=== PATIENT | female | born 1950 | race Caucasian/White ===

== ENCOUNTER → 2021-03-31 | Outpatient (CLI) | payer OTHER, MEDICARE ==
[~2021-03-31] MED LIST: ADDERALL 10 MG10 MG PO; ALPRAZOLAM XR3 MG PO; AMITIZA8 MCG PO; BYSTOLIC10 MG PO; FLONASE 0.05%50 MCG NARES; IPRAT-ALBUT 0.5-3 ML INH; LEVO-T25 MCG PO; NICOTINE1 EAC2 TRANSDERM; NORCO 10-325 T1 EACH PO; PAXIL20 MG PO; QUETIAPINE FUM300 MG PO; ZOCOR 20 MG TAB20 M1 PO
== END ==
LOC: SJCVC 12:32 → SJCVCIMAG 12:32
PROVIDERS: ATTEND Internal Medicine Cardiovascular Disease
DX: I65.23 Occlusion and stenosis of bilateral carotid arteries (principal); I34.0 Nonrheumatic mitral (valve) insufficiency; I49.3 Ventricular premature depolarization; C80.1 Malignant (primary) neoplasm, unspecified; R07.9 Chest pain, unspecified; E78.00 Pure hypercholesterolemia, unspecified; G89.29 Other chronic pain; R94.39 Abnormal result of other cardiovascular function study; R09.89 Other specified symptoms and signs involving the circulatory and respiratory systems; R53.83 Other fatigue; F90.9 Attention-deficit hyperactivity disorder, unspecified type; J44.9 Chronic obstructive pulmonary disease, unspecified; G56.01 Carpal tunnel syndrome, right upper limb; E03.9 Hypothyroidism, unspecified; F43.10 Post-traumatic stress disorder, unspecified; I12.9 Hypertensive chronic kidney disease with stage 1 through stage 4 chronic kidney disease, or unspecified chronic kidney disease; N18.30 Chronic kidney disease, stage 3 unspecified; M47.816 Spondylosis without myelopathy or radiculopathy, lumbar region; F17.200 Nicotine dependence, unspecified, uncomplicated; Z72.89 Other problems related to lifestyle; Z86.711 Personal history of pulmonary embolism; Z79.899 Other long term (current) drug therapy; Z88.2 Allergy status to sulfonamides; Z88.5 Allergy status to narcotic agent

== ENCOUNTER → 2021-04-03 | Outpatient (CLI) | payer OTHER, MEDICARE ==
[~2021-04-03] VITALS: Ht 172.7 cm; Wt 56.7 kg
[2021-04-03 08:34] LABS: HEMATOCRIT 37.3 % (37.0-47.0); HEMOGLOBIN 12.3 gm/dL (12.0-15.0); MCH 31.2 pg (26.0-34.0); MCV 94.8 fL (80.0-100.0); RBC 3.94 mil/uL (4.20-5.00); RDW 13.4 % (10.5-14.5)
[2021-04-03 08:36] LABS: CALCIUM 9.1 mg/dL (8.5-10.1); CREATININE 1.3 mg/dL (0.6-1.0); POTASSIUM 4.4 mmol/L (3.5-5.1)
[2021-04-03 08:55] VITALS: BP 133/83
--- NOTE | 2021-04-05 13:39 | CATHLAB ---
[facility] [place] [address] INVASIVE PROCEDURE REPORT Name: SIVAN YORK Room #: TONIA NjClintAyaanClint#: [id number] Admission: 04/03/21 Attend Phys: Marbin Cardoso MD, Discharge: Date of : 54 Report #: [id number] THIS REPORT FOR: cc: NADRES CALVO FAMILY PHYSICIAN or PCP Marbin Cardoso MD [facility] ~ APPROVED REPORT Study performed: 04/03/2021 09:14:04 Patient Details Patient Status: Out-Patient Room #: The patient is a 70 year-old female Event Personnel Marbin Cardoso Aoc Director Combat Operations Officer, Escobar Suarez RN RN, Farrah Gillespie RN RN, Angela Stevens RTR Monitor, Vannessa Perera RTR, ORAL SURGERY TECHNICIAN Scrub Procedures Performed Art Access - R femoral artery* Right and Left Heart Cath w/or w/o Coronarie [id number] [facility] Aortogram Abdominal Peripheral Angio 279789 Hemostasis w/ Mynx Hemostasis with Manual pressure 45103 Initial Mod Sed Same Phys/QHP Gr5y [id number] 31939 Mod Sed Same Phys/QHP Ea 899753 Indication Dyspnea, Positive stress test Procedure Narrative The Right Groin^ was infiltrated with 1% Lidocaine subcutaneous anesthesia. A PINNACLE 6FR Sheath #[id number] sheath was inserted into the RFA^. Coronary angiography was performed using coronary diagnostic catheters. The right coronary system was accessed and visualized with a JR4 catheter. The left coronary system was accessed and visualized with a JL4 catheter. The left ventricle was accessed and visualized with a PIGTAIL catheter. Left ventriculogram was performed in BULLARD projection. An aortogram of the abdominal aorta was performed. Closure device was deployed with a 6 Fr 6/7F MYNXGRIP. Hemostasis was obtained with manual pressure following sheath removal without any complications. The patient tolerated the procedure well and there were no complications associated with the procedure. There was no hematoma. [facility] [place] [address] INVASIVE PROCEDURE REPORT Name: SIVAN YORK Room #: REG Coco#: [id number] Admission: 04/03/21 Attend Phys: Marbin Cardoso, Discharge: Date of : 54 Report #: [id number] Intraoperative Conscious Sedation Sedation start time: 10:25 Case end Time: 11:10 Fentanyl 100 mcg Versed 1.5 mg Fluoro Time: 2.20 minutes Dose: DAP 1002.60 cGycm2 106 mGy Contrast Type and Amount: Visipaque 70 ml Hemodynamics The right atrial mean pressure is 7 mmHg. The right ventricular pressure is 34/-3 mmHg. The pulmonary artery pressure is 27/7 mmHg with a mean of 16 mmHg. The mean pulmonary capillary wedge pressure is 12 mmHg. The aortic pressure is 140/74 mmHg with a mean of 102 mmHg. The left ventricular pressure is 145/0 mmHg with a mean of mmHg. The left ventricular end diastolic pressure is 12 mmHg. The cardiac output using thermo method is 5.35 L/min. The cardiac index using thermo method is 3.19 L/min/m2. Conclusion #1 Successful right heart catheterization with cardiac output by thermodilution. See above hemodynamics. #2 normal left ventricular r size and systolic function EF 60%. #3 abdominal aorta is intact with mild ectasia no aneurysm. #4 left main is free of disease giving rise to LAD and circumflex. #5 the LAD extends around the apex minimal irregularity. #6 small nondominant circumflex artery no occlusive disease. #7 dominant right coronary artery relatively small in caliber but no occlusive disease. Recommendations and plan: Continue aggressive risk factor modification. No indication for coronary intervention no significant pulmonary hypertension. <ELECTRONICALLY SIGNED> By: Marbin Cardoso MD, FACC 04/05/21 1338 [id number] 1338 Marbin Cardoso MD, FACC /INF
== END | disposition home or self-care (01) ==
LOC: CATH 07:05
PROVIDERS: ATTEND Internal Medicine Cardiovascular Disease
DX: R94.39 Abnormal result of other cardiovascular function study (principal); I25.10 Atherosclerotic heart disease of native coronary artery without angina pectoris; I77.811 Abdominal aortic ectasia; R06.00 Dyspnea, unspecified; I10 Essential (primary) hypertension; E78.00 Pure hypercholesterolemia, unspecified; E03.9 Hypothyroidism, unspecified; J44.9 Chronic obstructive pulmonary disease, unspecified; F31.9 Bipolar disorder, unspecified; Z98.890 Other specified postprocedural states; Z79.899 Other long term (current) drug therapy; Z86.711 Personal history of pulmonary embolism; Z79.01 Long term (current) use of anticoagulants; Z87.891 Personal history of nicotine dependence; Z88.8 Allergy status to other drugs, medicaments and biological substances